=== PATIENT | female | born 1995 | race Caucasian/White ===

== ENCOUNTER 2024-06-05 19:13 | Emergency (ER) | payer OTHER, SELFPAY ==
[2024-06-05 19:31] VITALS: BP 153/95
[2024-06-05 19:59] LABS: % Basophils 0.3 % (0-2); % Eosinophils 1.9 % (0-6); % Immature Granulocytes 0.3 % (0-0.5); % Lymphocytes 21.6 % (20.5-51.1); % Monocytes 7.4 % (1.7-9.3); % Neutrophils 68.5 % (42.2-75.2); Absolute Eosinophils 0.2 10^3/uL (0-0.7); Absolute Lymphocytes 2.5 10^3/uL (1.2-3.4); Absolute Monocytes 0.9 10^3/uL (0.1-0.6); HCG, Serum Qualitative Screen Negative; Hematocrit 41.2 % (37.0-47.0); Hemoglobin 13.9 g/dL (12.0-16.0); Mean Corp Hgb Conc. 33.7 g/dL (33.0-37.0); Mean Corpuscular Hgb 30.7 pg (27.0-31.0); Mean Corpuscular Volume 90.9 fL (81.0-99.0); Mean Platelet Volume 9.2 fL (7.4-10.4); Nucleated Red Blood Cells % 0 %; Platelet Count 544 10^3/uL (130-400); Red Blood Cell Count 4.53 10^6/uL (4.20-5.40); Red Cell Dist. Width 14.6 % (11.5-14.5); White Blood Cell Count 11.7 10^3/uL (4.8-10.8)
[2024-06-05 20:03] LABS: ALT (SGPT) 34 U/L (0-35); AST (SGOT) 23 U/L (14-36); Albumin 4.7 g/dl (3.5-5.0); Alkaline Phosphatase 81 U/L (38-126); Blood Urea Nitrogen 14 mg/dl (7-17); Calcium 10.3 mg/dl (8.4-10.2); Carbon Dioxide 24 mmol/L (22-30); Chloride 101 mmol/L (98-107); Glucose 106 mg/dl (70-99); Potassium 4.2 mmol/L (3.5-5.1); Sodium 135 mmol/L (135-145); Total Bilirubin 0.6 mg/dl (0.2-1.3); Total Protein 7.4 g/dl (6.3-8.2); eGFR > 60.00
[2024-06-05 20:12] LABS: Troponin I < 0.012 ng/ml
[2024-06-05 22:00] VITALS: BP 150/86
[2024-06-06 00:17] VITALS: BP 129/82; BMI 36.1
--- NOTE | 2024-06-06 00:52 | ED.GENMED ---
History of Present Illness
General
Chief Complaint: Chest Pain
Source: patient and spouse
Exam Limitations: none
Time Seen by Provider: 06/05/24 23:11
Nursing documentation reviewed up to this point in time: agreed with
History of Present Illness
History of Present Illness:
28-year-old female with past medical history of high blood pressure presenting to the emergency department with a dull ache to the left chest starting last night denies specific issues associated shortness of breath has some mild lightheadedness
occasionally. Denies any recent trauma surgery immobilization history of blood clots leg swelling or estrogen product usage.
Review of Systems
Review of Systems
Allergies reviewed?: Yes
All Other Systems: ROS reviewed and negative except as documented in HPI and ROS
Phy Exam
Physical Exam
Physical Exam:
GENERAL: Alert , in no apparent distress
EYE: pupils equal and reactive
NECK: Supple, no significant adenopathy.
ENT: o/p clr, mmm.
CARDIAC: Regular rate and rhythm .
LUNGS: Clear breath sounds bilaterally, no acute respiratory distress, no wheezes/rales/rhonchi
ABDOMEN: Soft, without focal tenderness, no r/g, no cvat
NEUROLOGICAL: Alert and oriented, no focal neuro deficits
SKIN: Warm and dry, skin intact.
MUSCULOSKELETAL: No edema, well perfused.
PSYCH: Normal and appropriate interaction.
Scores
Heart Score for Chest Pain Patients
STEMI patient?: No
History: Slightly or Non-Suspicious
ECG: Normal
Age: </= 45 years
Risk Factors: 1 or 2 Risk Factors
Troponin: </= Normal Limit
Heart Score for Chest Pain Patients: 1
Heart Score Risk: 2.5% MACE over next 6 weeks
Course
Orders/Labs/Results
Orders:
Orders
06/05/24 19:15
Electrocardiogram (*1) Urgent
Reason for Study: Chest Pain
EKG- Treatment ONCE
06/05/24 19:33
Test Result ONCE
06/05/24 19:38
Complete Blood Count/With Diff Urgent
Comprehensive Metabolic Panel Urgent
HCG, Serum Qualitative Screen Urgent
Troponin I Urgent
06/05/24 23:15
Chest [CR Chest - 2 Views ] Urgent
Comment:
Reason For Exam: cp
06/05/24 23:58
EKG [Electrocardiogram (*1)] Urgent
Reason for Study: Chest Pain
06/05/24 23:59
EKG- Treatment ONCE
Abnormal Lab Results
06/05/24
19:38
WBC 11.7 H 10^3/uL
(4.8-10.8)
RDW 14.6 H %
(11.5-14.5)
Plt Count 544 H 10^3/uL
(130-400)
Absolute Neuts (auto) 8.0 H 10^3/uL
(1.4-6.5)
Absolute Monos (auto) 0.9 H 10^3/uL
(0.1-0.6)
Creatinine 0.5 L mg/dL
(0.6-1.0)
Glucose 106 H mg/dl
(70-99)
Calcium 10.3 H mg/dl
(8.4-10.2)
06/05/24 19:38
06/05/24 19:38
Vital Signs
Initial and Last Documented VS:
Initial Vital Signs
Temp Pulse Resp BP Pulse Ox
98.7 F 92 18 153/95 99
06/05/24 19:31 06/05/24 19:31 06/05/24 19:31 06/05/24 19:31 06/05/24 19:31
Last Documented Vital Signs
Temp Pulse Resp BP Pulse Ox
98.4 F 94 16 129/82 99
06/05/24 22:00 06/06/24 00:17 06/06/24 00:17 06/06/24 00:17 06/06/24 00:17
MDM/Problems Addressed
MDM/Problems Addressed:
28-year-old female presenting to the emergency department today with concerns of chest pain as well as lightheadedness started last night some mild ongoing this point. On arrival blood pressure was elevated otherwise vital signs are normal. Blood
pressure did improve without treatment. Labs without emergent findings. Troponin negative chest x-ray without acute findings EKG nonspecific changes but compared to old EKGs with the patient provided without specific changes no changes over
multiple hours while here in the ER. No evidence of emergent pathology stable for close outpatient follow-up. Return precautions given.
*Critical Care Note
Total Time (30-74mins, 75-104mins- exclusive of procedures): Not Applicable
ED Attending Note
-
Portions of this chart may have been created with voice recognition software.� Occasional wrong word or��sound alike� substitutions may have occurred due to the inherent limitations of voice recognition software.
Discharge Plan
Departure
Patient Disposition: Home (Routine Discharge)
Date of Disposition: 06/06/24
Time of Disposition: 00:54
Patient with high blood pressure during this ER visit?: No
Condition: Good
Covid-19: Not Applicable
Discharge Problem:
Chest pain
Instructions: Chest Pain PCP Follow Up
Prescriptions:
No Action
[id number] 1 mg Tablet
1 tab PO DAILY
labetalol 300 mg Tablet
300 mg PO BID
acetaminophen 325 mg Tablet
650 mg PO Q4HPRN PRN (Reason: mild pain) Qty: 0 0RF
sennosides-docusate sodium [Stool Softener-Stimulant Laxat] 8.6-50 mg Tablet
1 tab PO DAILYPRN PRN (Reason: constipation) Qty: 0 0RF
ibuprofen 600 mg Tablet
600 mg PO Q6HPRN PRN (Reason: cramps) Qty: 0 0RF
simethicone 80 mg Tablet,Chewable
80 mg PO TIDPRN PRN (Reason: flatulence) Qty: 0 0RF
Referrals:
Jessica Pike CRNP [Family Provider] -
Activity Restrictions/Additional Instructions:
You came to the emergency department with concerns of chest pain. Here you had a reassuring assessment. Please follow closely with your primary care doctor. Return for any worsening, new or concerning symptoms.
Interventions
Interventions:
*Risk Screen - Suicide Last Done: 06/05/24 19:31
*General Assessment Last Done: 06/05/24 19:31
*Neglect/Abuse Screening Last Done: 06/05/24 19:31
ED- Fall Risk Assessment Last Done: 06/06/24 00:20
*ED COVID-19 Vaccine History Last Done: 06/05/24 19:31
ED- Cardiac Assessment Last Done: 06/06/24 00:20
Discharge Date and Time
Print Language: YI
== END 2024-06-06 01:25 | disposition home or self-care (01) ==
LOC: EMR 19:13
PROVIDERS: Emergency Medicine; EMERGENCY PHYSICIAN Student in an Organized Health Care Education/Training Program; FAMILY PHYSICIAN Nurse Practitioner Adult Health
DX: R07.9 Chest pain, unspecified (principal); R42 Dizziness and giddiness
CPT/HCPCS: 99285; 71046; 80053; 84484; 84703; 85025; 93005

== ENCOUNTER → 2024-06-14 07:33 | Outpatient (REF) | payer OTHER, SELFPAY | LOC: HWRCS 07:33 | PROVIDERS: ATTENDING PHYSICIAN Nurse Practitioner Adult Health | DX: R94.31 Abnormal electrocardiogram [ECG] [EKG] (principal); R07.89 Other chest pain | CPT/HCPCS: 93306 ==

== ENCOUNTER → 2024-06-14 14:21 | Outpatient (REF) | payer OTHER, SELFPAY ==
[2024-06-14 15:02] LABS: D-Dimer < 0.27 ug/mlFEU (0.00-0.50)
== END ==
LOC: REG 14:21
PROVIDERS: ATTENDING PHYSICIAN Nurse Practitioner Adult Health
DX: R07.89 Other chest pain (principal); R06.02 Shortness of breath
CPT/HCPCS: 36415; 85379

== ENCOUNTER → 2024-07-18 14:12 | Outpatient (REF) | payer OTHER, SELFPAY | LOC: PAVMRI 14:12 | PROVIDERS: ATTENDING PHYSICIAN Nurse Practitioner Adult Health | DX: G43.109 Migraine with aura, not intractable, without status migrainosus (principal) | CPT/HCPCS: 70553; A9575 ==

== ENCOUNTER → 2024-09-19 14:51 | Outpatient (REF) | payer OTHER, SELFPAY | LOC: RCS 14:51 | PROVIDERS: ATTENDING PHYSICIAN Internal Medicine Cardiovascular Disease; FAMILY PHYSICIAN Nurse Practitioner Adult Health | DX: I10 Essential (primary) hypertension (principal); R07.9 Chest pain, unspecified; R06.02 Shortness of breath | CPT/HCPCS: 93017 ==

== ENCOUNTER → 2024-12-10 08:17 | Outpatient (REF) | payer OTHER, SELFPAY | LOC: WDC 08:17 | PROVIDERS: ATTENDING PHYSICIAN Advanced Practice Midwife; FAMILY PHYSICIAN Nurse Practitioner Adult Health | DX: N63.11 Unspecified lump in the right breast, upper outer quadrant (principal) | CPT/HCPCS: 76642 ==